=== PATIENT | female | born 1970 ===

== ENCOUNTER 2020-08-12 12:08 | Emergency (ER) | payer MEDICAID ==
[~2020-08-12] VITALS: Ht 160 cm; Wt 77.3 kg
--- NOTE | 2020-08-12 12:49 | NUR ---
first contact with pt. pt c/o left ear pain d/t hearing aid tip stuck in ear since 12pm today. pt denies any other symptoms. pt's aox4. resps even and unlabored. bp/spo2 monitors in place. denies ear bleeding/discharge.
--- NOTE | 2020-08-12 14:03 | NUR ---
edmd at bedside for assesment at this time.
[2020-08-12] MEDS ORDERED: HYDROcodone/APAP 5/325 TABLET ONE (14:18)
--- NOTE | 2020-08-12 14:22 | NUR ---
pt medicated per emar. pt tolerated well.
[2020-08-12 14:23] VITALS: BP 113/58
[2020-08-12] MEDS ORDERED: HYDROcodone/APAP 5/325 TABLET PO ONE (14:30)
== END 2020-08-12 15:06 | disposition home or self-care (01) ==
LOC: ED 13:49
DX: T16.2XXA Foreign body in left ear, initial encounter (principal); H66.002 Acute suppurative otitis media without spontaneous rupture of ear drum, left ear; X58.XXXA Exposure to other specified factors, initial encounter; Y93.89 Activity, other specified; Y92.89 Other specified places as the place of occurrence of the external cause; Y99.8 Other external cause status
CPT/HCPCS: 99284

== ENCOUNTER → 2020-12-12 | Outpatient (CLI) | payer MEDICAID | END | disposition home or self-care (01) | LOC: MERGE 12:23 → STAR 12:23 | PROVIDERS: ATTEND Anesthesiology | DX: Z01.818 Encounter for other preprocedural examination (principal); Z01.812 Encounter for preprocedural laboratory examination; Z01.89 Encounter for other specified special examinations; R79.1 Abnormal coagulation profile | CPT/HCPCS: 93005 ==